=== PATIENT | female | born 1990 | race Caucasian/White ===

== ENCOUNTER 2016-09-29 09:30 | Emergency (ER) | payer OTHER ==
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
[2016-09-29 11:09] VITALS: BP 132/83; TEMP 98; O2SAT 95
== END 2016-09-29 11:04 | disposition home or self-care (01) ==
LOC: ER 09:30
DX: S50.812A Abrasion of left forearm, initial encounter (principal); J45.909 Unspecified asthma, uncomplicated; Z88.0 Allergy status to penicillin; Z79.899 Other long term (current) drug therapy; I49.02 Ventricular flutter; M25.441 Effusion, right hand; X99.8XXA Assault by other sharp object, initial encounter; Y92.89 Other specified places as the place of occurrence of the external cause

== ENCOUNTER → 2017-02-05 | Outpatient (CLI) | payer OTHER ==
--- NOTE | 2017-02-08 08:35 | RAD ---
EXAM DESCRIPTION: Cervical Spine,3 Views CLINICAL HISTORY: 26 yearsFemale, CERVICALGIA COMPARISON: None. IMPRESSION: Vertebral body stature and alignment are maintained. There is no evidence of acute fracture or destructive osseous lesion. Intervertebral disc heights are preserved. There are no significant degenerative changes. No prevertebral soft tissue swelling. Electronically signed by: Tima Phelps MD 02/08/2017 8:34 AM CDT
--- NOTE | 2017-02-08 08:44 | RAD ---
EXAM DESCRIPTION: Thoracic Spine,AP Lateral CLINICAL HISTORY: 26 years, Female, THORACIC SPINE PAIN COMPARISON: None. FINDINGS: 2 views are obtained. On the frontal projection thoracic spine only seen to the level of the top of T10. Follow-up should be obtained if concern for injury at T11 or T12. Disc spaces well-maintained. IMPRESSION: No definite abnormality. Study slightly limited as discussed Electronically signed by: Yunier Merchant MD 02/08/2017 8:44 AM CDT
== END | disposition home or self-care (01) ==
LOC: RAD 15:07
PROVIDERS: ATTEND Nurse Practitioner Family
DX: M54.2 Cervicalgia (principal); M54.6 Pain in thoracic spine

== ENCOUNTER 2017-04-17 19:54 | Emergency (ER) | payer OTHER ==
[2017-04-17] MEDS ORDERED: KETOROLAC TROMETHAMINE INJ 60 MG/2 ML VIAL IM ONE (20:06)
[2017-04-17 20:18] VITALS: TEMP 98.7
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
[2017-04-17 21:19] VITALS: BP 118/72; O2SAT 99
== END 2017-04-17 21:05 | disposition home or self-care (01) ==
LOC: ER 19:54
DX: F43.22 Adjustment disorder with anxiety (principal); Z63.0 Problems in relationship with spouse or partner; J45.909 Unspecified asthma, uncomplicated; Z88.0 Allergy status to penicillin; Z87.891 Personal history of nicotine dependence
CPT/HCPCS: 93005; J1885

== ENCOUNTER 2017-08-05 09:44 | Emergency (ER) | payer OTHER ==
[2017-08-05] MEDS ORDERED: predniSONE 20 MG TAB PO ONE (10:29)
[2017-08-05] MEDS ORDERED: IPRATROPIUM/ALBUTEROL 3 ML VIAL NEB ONE (10:29)
--- NOTE | 2017-08-05 10:47 | RAD ---
EXAM DESCRIPTION: Hand,Right 2 Views CLINICAL HISTORY: 27 years Female, 5th metacarpal pain COMPARISON: November 07, 2010 FINDINGS: 2 views of the right hand show subtle attenuation of the right fifth metacarpal neck without associated cortical lucency, probably related to an old healed fifth metacarpal fracture seen on a previous exam performed in October,. No acute fracture or malalignment is identified. No radiopaque foreign body or soft tissue gas. IMPRESSION: Old healed right fifth metacarpal neck fracture, but no acute right hand abnormality. Electronically signed by: Gordon Zarco MD 08/05/2017 10:46 AM [facility]
[2017-08-05] MEDS ORDERED: cefTRIAXone SODIUM 1 GM VIAL IM ONE (10:54)
[2017-08-05] MEDS ORDERED: AZITHROMYCIN 250 MG TAB PO ONE (10:54)
--- NOTE | 2017-08-05 10:56 | ED.PDOC ---
History of Present Illness - General Chief Complaint: Respiratory Problem Stated Complaint: congestion, dizziness Time Seen by Provider: 08/05/17 09:52 Source: patient Exam Limitations: no limitations - History of Present Illness Initial Comments: the patient is a 27-year-old female presenting to the emergency room secondary to 2 weeks of progressive symptoms. The patient has had a cough and some shortness of breath. She reports subjective fevers. She has had a mild sore throat and a runny nose. She has bilateral maxillary sinus pressure. Additionally she fell yesterday and hurt her right hand along the fifth metacarpal. There is no deformity. She is neurovascularly intact. There is a small bruise. She does smoke but has not smoked for a week or 2. She does have a history of asthma but takeno medications . Timing/Duration: constant, getting worse Severity: moderate Improving Factors: nothing Worsening Factors: nothing Associated Symptoms: cough, fever/chills, loss of appetite, malaise, nausea/ vomiting, shortness of breath Allergies/Adverse Reactions: Allergies Penicillins Allergy (Verified 08/05/17 10:15) Unknown Home Medications: Ambulatory Orders Mcmurray Carbonate [Mcm[place]ray Carbonate ER] 550 mg PO BID 12/24/15 Hydroxyzine HCl 50 mg PO QID PRN 09/29/16 Albuterol Inhaler [Ventolin Hfa Inhaler] 2 puff INH Q3H PRN #1 inh 08/05/17 Azithromycin 500 mg PO DAILY #7 tab 08/05/17 predniSONE [Prednisone] 20 mg PO DAILY #5 tab 08/05/17 Review of Systems - Review of Systems Constitutional: States: fever, malaise EENTM: States: nose congestion, throat pain Respiratory: States: cough, short of breath Cardiology: States: no symptoms reported Gastrointestinal/Abdominal: States: nausea Genitourinary: States: no symptoms reported Musculoskeletal: States: no symptoms reported Skin: States: no symptoms reported Neurological: States: anxiety Endocrine: States: no symptoms reported All other Systems: No Change from Baseline Past Medical History (General) - Patient Medical History Hx Seizures: No Hx Stroke: No Hx Dementia: No Hx Asthma: Yes Hx of COPD: No Hx Cardiac Disorders: Yes - flutter Hx Congestive Heart Failure: No Hx Pacemaker: No Hx Hypertension: No Hx Thyroid Disease: No Hx Diabetes: No Hx Gastroesophageal Reflux: No Hx Renal Disease: No Hx Cancer: No Hx of HIV: No Hx Hepatitis C: No Hx MRSA: No - Vaccination History Hx Tetanus, Diphtheria Vaccination: No Hx Influenza Vaccination: No Hx Pneumococcal Vaccination: No - Social History Hx Tobacco Use: Yes Hx Chewing Tobacco Use: No Hx Alcohol Use: Yes Hx Substance Use: No Hx Substance Use Treatment: No Hx Depression: Yes - not on medication denied suicidal Hx Physical Abuse: No Hx Emotional Abuse: No Hx Suspected Abuse: No - Female History Hx Last Menstrual Period: 02/23/15 Patient : No Family Medical History - Family History Father Family History: No Known Living Status: Still Living Hx Family Hypertension: Yes Physical Exam - Physical Exam General Appearance: Alert, Comfortable, No apparent distress Eye Exam: bilateral normal Ears, Nose, Throat: hearing grossly normal, pharyngeal erythema - ild, other - nares are red. 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 No fracture is seen on x -ray. the patient has an asthma exacerbation. She will be written for prednisone and albuterol. She needs to not smoke. the patient will be placed on 7 days of azithromycin for a possible sinus infection and for coverage of any possible atypical bacterial bronchitis. ER warnings were given. Follow-up with primary care doctor next week - Results/Orders Results/Orders: x-ray of the right hand shows no evidence of any fracture or dislocation Departure - Departure Clinical Impression: Asthma with exacerbation Qualifiers: Asthma severity: unspecified severity Qualified Code(s): J45.901 - Unspecified asthma with (acute) exacerbation Sinusitis, acute maxillary Qualifiers: Recurrence: recurrent Qualified Code(s): J01.01 - Acute recurrent maxillary sinusitis Contusion, hand Qualifiers: Encounter type: initial encounter Laterality: right Qualified Code(s): S60.221A - Contusion of right hand, initial encounter Disposition: Discharge to Home or Self Care Condition: Fair Departure Forms: ED Discharge - Pt. Copy, Patient Portal Self Enrollment Instructions: DI for Asthma -- Adult Diet: regular diet Activity: increase activity as tolerated Referrals: Zenaida Ann NP [Primary Care Provider] - 1-5 Days Prescriptions: Albuterol Inhaler [Ventolin Hfa Inhaler] 2 puff INH Q3H PRN #1 inh PRN Reason: Shortness Of Breath Azithromycin 500 mg PO DAILY #7 tab predniSONE [Prednisone] 20 mg PO DAILY #5 tab Home Medications: Ambulatory Orders Mcmurray Carbonate [Mcmurray Carbonate ER] 550 mg PO BID 12/24/15 Hydroxyzine HCl 50 mg PO QID PRN 09/29/16 Albuterol Inhaler [Ventolin Hfa Inhaler] 2 puff INH Q3H PRN #1 inh 08/05/17 Azithromycin 500 mg PO DAILY #7 tab 08/05/17 predniSONE [Prednisone] 20 mg PO DAILY #5 tab 08/05/17 Additional Instructions: the patient has a bruise to her right hand from a fall. No fracture is seen on x -ray. the patient has an asthma exacerbation. She will be written for prednisone and albuterol. She needs to not smoke. the patient will be placed on 7 days of azithromycin for a possible sinus infection and for coverage of any possible atypical bacterial bronchitis. ER warnings were given. Follow-up with primary care doctor next week
[2017-08-05] MEDS ORDERED: LIDOCAINE 1% 10 ML VIAL INJ ONE (11:07)
[2017-08-05 11:25] VITALS: BP 132/74; TEMP 97; O2SAT 96
== END 2017-08-05 11:26 | disposition home or self-care (01) ==
LOC: ER 09:44
DX: S60.221A Contusion of right hand, initial encounter (principal); J01.01 Acute recurrent maxillary sinusitis; J45.901 Unspecified asthma with (acute) exacerbation; F17.200 Nicotine dependence, unspecified, uncomplicated; I49.8 Other specified cardiac arrhythmias; W19.XXXA Unspecified fall, initial encounter; Y92.9 Unspecified place or not applicable
CPT/HCPCS: 73120; 94640; J0696; J7512; J7620; Q0144

== ENCOUNTER 2017-08-13 11:18 | Emergency (ER) | payer OTHER ==
[2017-08-13 11:33] VITALS: BP 121/75; TEMP 97.5; O2SAT 98
--- NOTE | 2017-08-13 11:40 | ED.PDOC ---
History of Present Illness - General Chief Complaint: Problem Stated Complaint: needs test Time Seen by Provider: 08/13/17 11:37 Source: patient Exam Limitations: no limitations - History of Present Illness Timing/Duration: 1 hour - JENNY HAS A TUBAL LIGATION BUT HAS MISED TWO CONSECUTIVE MENTRUAL PERIODS. SHE HAS NOTED MORNING SICKNESS AND BOUGHT A URINE TEST AT [facility]. IT WAS POSITIVE. SHE NOW IS HERE TO CONFIRM HER TEST. SHE DENIES ANY PELVIC PAIN OR VAGINAL BLEEDING. Allergies/Adverse Reactions: Allergies Penicillins Allergy (Verified 08/05/17 10:15) Unknown Home Medications: Ambulatory Orders [place] Carbonate [[place] Carbonate ER] 550 mg PO BID 12/24/15 Hydroxyzine HCl 50 mg PO QID PRN 09/29/16 Albuterol Inhaler [Ventolin Hfa Inhaler] 2 puff INH Q3H PRN #1 inh 08/05/17 Azithromycin 500 mg PO DAILY #7 tab 08/05/17 predniSONE [Prednisone] 20 mg PO DAILY #5 tab 08/05/17 Review of Systems - Review of Systems Constitutional: States: no symptoms reported EENTM: States: no symptoms reported Respiratory: States: no symptoms reported Cardiology: States: no symptoms reported Gastrointestinal/Abdominal: States: nausea, vomiting Genitourinary: States: no symptoms reported Musculoskeletal: States: no symptoms reported Skin: States: no symptoms reported Neurological: States: no symptoms reported Endocrine: States: no symptoms reported Hematologic/Lymphatic: States: no symptoms reported All other Systems: Reviewed and Negative, No Change from Baseline Past Medical History (General) - Patient Medical History Hx Seizures: No Hx Stroke: No Hx Dementia: No Hx Asthma: Yes Hx of COPD: No Hx Cardiac Disorders: Yes - flutter Hx Congestive Heart Failure: No Hx Pacemaker: No Hx Hypertension: No Hx Thyroid Disease: No Hx Diabetes: No Hx Gastroesophageal Reflux: No Hx Renal Disease: No Hx Cancer: No Hx of HIV: No Hx Hepatitis C: No Hx MRSA: No Other Surgeries:: BILATERAL TUBAL LIGATION - Vaccination History Hx Tetanus, Diphtheria Vaccination: No Hx Influenza Vaccination: No Hx Pneumococcal Vaccination: No - Social History Hx Tobacco Use: Yes Hx Chewing Tobacco Use: No Hx Alcohol Use: Yes Hx Substance Use: No Hx Substance Use Treatment: No Hx Depression: Yes - not on medication denied suicidal Hx Physical Abuse: No Hx Emotional Abuse: No Hx Suspected Abuse: No - Female History Patient is a Female of Child Bearing Age (10 -59 yrs old): Yes Hx Last Menstrual Period: 02/23/15 Patient : No Family Medical History - Family History Father Family History: No Known Living Status: Still Living Hx Family Hypertension: Yes Physical Exam - Physical Exam General Appearance: Alert, Anxious Eye Exam: bilateral normal Ears, Nose, Throat: normal ENT inspection Neck: non-tender, full range of motion, supple Respiratory: chest non-tender, lungs clear Cardiovascular/Chest: normal peripheral pulses, regular rate, rhythm, no edema, no gallop Peripheral Pulses: radial,right: 2+ Gastrointestinal/Abdominal: normal bowel sounds, non tender, soft, no organomegaly Rectal Exam: deferred Back Exam: normal inspection Extremity: normal range of motion Neurologic: alert Skin Exam: normal color, warm/dry Progress - Results/Orders Results/Orders: QUALITATIVE [facility]CG IS REPORTED NEGATIVE. Departure - Departure Clinical Impression: Amenorrhea, unspecified Time of Disposition: 12:37 Disposition: Discharge to Home or Self Care Condition: Good Departure Forms: ED Discharge - Pt. Copy, Patient Portal Self Enrollment Instructions: DI for Amenorrhea Diet: resume usual diet Activity: increase activity as tolerated Referrals: Tomeka Tinajero NP [Primary Care Provider] - 1-2 Weeks Home Medications: Ambulatory Orders [place] Carbonate [[place] Carbonate ER] 550 mg PO BID 12/24/15 Hydroxyzine HCl 50 mg PO QID PRN 09/29/16 Albuterol Inhaler [Ventolin Hfa Inhaler] 2 puff INH Q3H PRN #1 inh 08/05/17 Azithromycin 500 mg PO DAILY #7 tab 08/05/17 predniSONE [Prednisone] 20 mg PO DAILY #5 tab 08/05/17
== END 2017-08-13 12:40 | disposition home or self-care (01) ==
LOC: ER 11:18
DX: N91.2 Amenorrhea, unspecified (principal); J45.909 Unspecified asthma, uncomplicated; F32.9 Major depressive disorder, single episode, unspecified; F17.200 Nicotine dependence, unspecified, uncomplicated; Z32.02 Encounter for pregnancy test, result negative; Z98.51 Tubal ligation status; Z88.0 Allergy status to penicillin

== ENCOUNTER 2017-11-10 11:38 | Emergency (ER) | payer OTHER ==
[2017-11-10 12:09] VITALS: TEMP 98.3
--- NOTE | 2017-11-10 12:19 | ED.PDOC ---
History of Present Illness - General Chief Complaint: Lower Extremity Injury Stated Complaint: L knee injury, discomfort x 1 week Time Seen by Provider: 11/10/17 12:08 Source: patient Exam Limitations: no limitations - History of Present Illness Initial Comments: Gaby Griggs 27 y/o female stated that she was walking her dog last week and leash wrap around her forearm suddenly her dog wanted to run and was pulled down the ground landing on both her knees and brother noticed that her left kneecap looks dislocated and put it back.Had dull pain left knee since incident.Denies any other injuries. Occurred: last week Pain - Lower Extremity: moderate: Left Knee Method of Injury: fell Improving Factors: rest Worsening Factors: movement Associated Symptoms: pain Allergies/Adverse Reactions: Allergies Penicillins Allergy (Verified 11/10/17 11:55) Unknown Home Medications: Ambulatory Orders Bupropion HCl [Wellbutrin Sr] 150 mg PO DAILY 11/10/17 [place] Carbonate 300 mg PO DAILY 11/10/17 [place] Carbonate 600 mg PO BEDTIME 11/10/17 Sertraline HCl 50 mg PO DAILY 11/10/17 hydrOXYzine HCl [Atarax] 50 mg PO QID 11/10/17 Review of Systems - Review of Systems Constitutional: States: no symptoms reported EENTM: States: no symptoms reported Respiratory: States: no symptoms reported Cardiology: States: no symptoms reported Musculoskeletal: States: see HPI All other Systems: Reviewed and Negative, No Change from Baseline Past Medical History (General) - Patient Medical History Hx Seizures: No Hx Stroke: No Hx Dementia: No Hx Asthma: Yes Hx of COPD: No Hx Cardiac Disorders: Yes - flutter Hx Congestive Heart Failure: No Hx Pacemaker: No Hx Hypertension: No Hx Thyroid Disease: No Hx Diabetes: No Hx Gastroesophageal Reflux: No Hx Renal Disease: No Hx Cancer: No Hx of HIV: No Hx Hepatitis C: No Hx MRSA: No Surgical History: other - tubal ligation, - Vaccination History Hx Tetanus, Diphtheria Vaccination: No Hx Influenza Vaccination: No Hx Pneumococcal Vaccination: No - Social History Hx Tobacco Use: Yes Hx Chewing Tobacco Use: No Hx Alcohol Use: Yes Hx Substance Use: No Hx Substance Use Treatment: No Hx Depression: Yes - not on medication denied suicidal Hx Physical Abuse: No Hx Emotional Abuse: No Hx Suspected Abuse: No - Female History Patient is a Female of Child Bearing Age (10 -59 yrs old): Yes Hx Last Menstrual Period: 02/23/15 Patient : No Family Medical History - Family History Father Family History: No Known Living Status: Still Living Hx Family Hypertension: Yes Hx Family Diabetes: Yes - dad Hx Family Cancer: Yes - cervical-mom,breast-grandma Physical Exam - Physical Exam General Appearance: Alert, Comfortable, No apparent distress Eyes, Ears, Nose, Throat: normal ENT inspection Neck: full range of motion, supple Cardiovascular/Respiratory: regular rate, rhythm, no M/R/G, normal peripheral pulses Gastrointestinal/Abdominal: non-tender, no organomegaly Back: no CVA tenderness, no vertebral tenderness Thigh/Hip: non-tender, no evidence of injury Leg: non-tender, no evidence of injury Ankle: bone tenderness - kneecap left, ecchymosis - left knee, limited ROM - left knee pain flexion,no instability noted, soft tissue tenderness - left knee Foot: no evidence of injury Neuro/Tendon: normal sensation, no evidence tendon injury Mental Status: alert, oriented x 3 Progress - Progress Progress: 11/10/17 12:23 Vital Signs - 24 hr 11/10/17 11:56 Temperature 98.3 F Pulse Rate [ 77 Left Radial] Respiratory 20 Rate Blood Pressure 119/71 [Left Arm] O2 Sat by Pulse 97 Oximetry - EKG/XRAY/CT XRAY: knee - left no fracture dislocation Departure - Departure Clinical Impression: Knee pain, left anterior Contusion of knee, left Qualifiers: Encounter type: initial encounter Qualified Code(s): S80.02XA - Contusion of left knee, initial encounter Time of Disposition: 12:57 Disposition: Discharge to Home or Self Care Departure Forms: ED Discharge - Pt. Copy, Patient Portal Self Enrollment Instructions: DI for Knee Pain, DI for Contusion Home Medications: Ambulatory Orders Bupropion HCl [Wellbutrin Sr] 150 mg PO DAILY 11/10/17 [place] Carbonate 300 mg PO DAILY 11/10/17 [place] Carbonate 600 mg PO BEDTIME 11/10/17 Sertraline HCl 50 mg PO DAILY 11/10/17 hydrOXYzine HCl [Atarax] 50 mg PO QID 11/10/17 Additional Instructions: Follow up with primary Md for referral to orthopedist if knee pain not getting better in 2 weeks;May use Aspercreme apply 3 x a day for 2 weeks
--- NOTE | 2017-11-10 12:40 | RAD ---
EXAM DESCRIPTION: Knee,Left 2 Views CLINICAL HISTORY: 27 years, Female, injury, swelling COMPARISON: None TECHNIQUE: 2 views of the left knee FINDINGS: No fracture or dislocation. Bones appear normally mineralized with normal trabecular pattern. Normal appearance of medial and lateral compartments on frontal view. Lateral view shows normal position of the patella. No patellar spurring or enthesopathy. No suprapatellar knee joint effusion. Normal contour of quadriceps and patellar tendons. IMPRESSION: Negative for fracture or dislocation. Electronically signed by: Michael Byrne MD 11/10/2017 12:38 PM CDT
[2017-11-10 13:10] VITALS: BP 110/68; O2SAT 99
== END 2017-11-10 13:10 | disposition home or self-care (01) ==
LOC: ER 11:38
DX: S80.02XA Contusion of left knee, initial encounter (principal); I49.8 Other specified cardiac arrhythmias; Z79.899 Other long term (current) drug therapy; Z87.891 Personal history of nicotine dependence; W19.XXXA Unspecified fall, initial encounter; Y93.K1 Activity, walking an animal; Y92.9 Unspecified place or not applicable

== ENCOUNTER 2018-02-12 15:19 | Emergency (ER) | payer OTHER ==
[2018-02-12] MEDS ORDERED: TETANUS,DIPHTHERIA,PERTUSSIS 1 EA SYG IM ONE (15:45)
[2018-02-12] MEDS ORDERED: DOXYCYCLINE HYCLATE CAP 100 MG CAP PO ONE (16:33)
[2018-02-12 16:37] VITALS: BP 100/65; TEMP 98.9; O2SAT 95
--- NOTE | 2018-02-12 16:37 | ED.PDOC ---
History of Present Illness - General Chief Complaint: Bite: Animal/Insect/Human Stated Complaint: cat bite to RH Time Seen by Provider: 02/12/18 15:43 Source: patient, Vital Signs reviewed Exam Limitations: no limitations - History of Present Illness Initial Comments: Bitten by her cat on Wednesday. Pain & redness today. Timing/Duration: getting worse Severity: mild Improving Factors: nothing Worsening Factors: nothing Associated Symptoms: denies symptoms Allergies/Adverse Reactions: Allergies Penicillins Allergy (Verified 11/10/17 11:55) Unknown Home Medications: Ambulatory Orders Bupropion HCl [Wellbutrin Sr] 150 mg PO DAILY 11/10/17 [place] Carbonate 300 mg PO DAILY 11/10/17 [place] Carbonate 600 mg PO BEDTIME 11/10/17 Sertraline HCl 50 mg PO DAILY 11/10/17 hydrOXYzine HCl [Atarax] 50 mg PO QID 11/10/17 Doxycycline Hyclate 100 mg PO BID 10 Days #20 tab 02/12/18 Review of Systems - Review of Systems Constitutional: States: no symptoms reported. Denies: fever Gastrointestinal/Abdominal: Denies: nausea, vomiting Musculoskeletal: States: see HPI. Denies: joint pain, joint swelling Skin: States: see HPI, change in color Neurological: States: no symptoms reported Past Medical History (General) - Patient Medical History Hx Seizures: No Hx Stroke: No Hx Dementia: No Hx Asthma: Yes Hx of COPD: No Hx Cardiac Disorders: Yes - flutter Hx Congestive Heart Failure: No Hx Pacemaker: No Hx Hypertension: No Hx Thyroid Disease: No Hx Diabetes: No Hx Gastroesophageal Reflux: No Hx Renal Disease: No Hx Cancer: No Hx of HIV: No Hx Hepatitis C: No Hx MRSA: No - Vaccination History Hx Tetanus, Diphtheria Vaccination: No Hx Influenza Vaccination: No Hx Pneumococcal Vaccination: No - Social History Hx Tobacco Use: Yes Hx Chewing Tobacco Use: No Hx Alcohol Use: Yes Hx Substance Use: No Hx Substance Use Treatment: No Hx Depression: Yes - not on medication denied suicidal Hx Physical Abuse: No Hx Emotional Abuse: No Hx Suspected Abuse: No - Female History Hx Last Menstrual Period: 02/23/15 Patient : No Family Medical History - Family History Father Family History: No Known Living Status: Still Living Hx Family Hypertension: Yes Hx Family Diabetes: Yes - dad Hx Family Cancer: Yes - cervical-mom,breast-grandma Physical Exam - Physical Exam General Appearance: Alert, Comfortable, No apparent distress Respiratory: no respiratory distress Extremity: normal range of motion, normal capillary refill, inflammation, other - 2 puncture sites, one is near the first MCP joint but no effusion present Neurologic: no motor/sensory deficits, alert, normal mood/affect, oriented x 3 Skin Exam: warm/dry Departure - Departure Clinical Impression: Bite wound Cellulitis Qualifiers: Site of cellulitis: extremity Site of cellulitis of extremity: upper extremity Laterality: right Qualified Code(s): L03.113 - Cellulitis of right upper limb Time of Disposition: 16:34 Disposition: Discharge to Home or Self Care Condition: Good Departure Forms: ED Discharge - Pt. Copy, Patient Portal Self Enrollment Instructions: DI for Animal Bites Prescriptions: Doxycycline Hyclate 100 mg PO BID 10 Days #20 tab Home Medications: Ambulatory Orders Bupropion HCl [Wellbutrin Sr] 150 mg PO DAILY 11/10/17 [place] Carbonate 300 mg PO DAILY 11/10/17 [place] Carbonate 600 mg PO BEDTIME 11/10/17 Sertraline HCl 50 mg PO DAILY 11/10/17 hydrOXYzine HCl [Atarax] 50 mg PO QID 11/10/17 Doxycycline Hyclate 100 mg PO BID 10 Days #20 tab 02/12/18 Additional Instructions: follow up here in 3 days if not improving
== END 2018-02-12 17:10 | disposition home or self-care (01) ==
LOC: ER 15:19
DX: L03.113 Cellulitis of right upper limb (principal); J45.909 Unspecified asthma, uncomplicated; Z23 Encounter for immunization; Z87.891 Personal history of nicotine dependence; Z79.899 Other long term (current) drug therapy; Z88.0 Allergy status to penicillin

== ENCOUNTER 2018-09-05 07:06 | Emergency (ER) | payer OTHER ==
[2018-09-05 07:28] VITALS: TEMP 98.3
[2018-09-05] MEDS ORDERED: PROMETHAZINE HCL INJ 12.5 MG in SODIUM CHLORIDE 0.9% 50ML 50 ML IVPB ONE (07:39)
[2018-09-05] MEDS ORDERED: MORPHINE SULFATE INJ 10 MG/ML VIAL IV ONE (07:40)
--- NOTE | 2018-09-05 07:43 | ED.PDOC ---
History of Present Illness - General Chief Complaint: Respiratory Problem Stated Complaint: cough Time Seen by Provider: 09/05/18 07:31 Source: patient Exam Limitations: no limitations - History of Present Illness Initial Comments: Sinus congestion with chest congestion, cough, SOB, and N/V for 1-2 days Timing/Duration: 24 hours Severity: moderate Improving Factors: nothing Worsening Factors: nothing Associated Symptoms: cough, diaphoresis, fever/chills, malaise, nausea/vomiting, shortness of breath, weakness Allergies/Adverse Reactions: Allergies Penicillins Allergy (Verified 11/10/17 11:55) Unknown Home Medications: Ambulatory Orders Benzonatate Perles [Tessalon Perles] 100 mg PO TID PRN #20 cap 09/05/18 Dextromethorphan-Guaifenesin [Mucinex Dm Maximum Streng 60-1200 mg] 1 tab PO BID PRN #20 tab 09/05/18 Hydroxyzine Pamoate [Vistaril] 50 mg PO DAILY PRN 09/05/18 RX: Albuterol Inhaler [Ventolin Hfa Inhaler] 2 puff INH Q6HR PRN #1 inh 09/05/18 Review of Systems - Review of Systems Constitutional: States: chills, diaphoresis, fever, malaise EENTM: States: nose congestion. Denies: throat pain Respiratory: States: cough, short of breath, wheezing Cardiology: Denies: chest pain Gastrointestinal/Abdominal: States: nausea, vomiting. Denies: abdominal pain, diarrhea Genitourinary: States: no symptoms reported Musculoskeletal: States: muscle pain Skin: States: no symptoms reported Neurological: States: no symptoms reported Endocrine: States: no symptoms reported Hematologic/Lymphatic: States: no symptoms reported Past Medical History (General) - Patient Medical History Hx Seizures: No Hx Stroke: No Hx Dementia: No Hx Asthma: Yes Hx of COPD: No Hx Cardiac Disorders: Yes - flutter Hx Congestive Heart Failure: No Hx Pacemaker: No Hx Hypertension: No Hx Thyroid Disease: No Hx Diabetes: No Hx Gastroesophageal Reflux: No Hx Renal Disease: No Hx Cancer: No Hx of HIV: No Hx Hepatitis C: No Hx MRSA: No Surgical History: other - Vaccination History Hx Tetanus, Diphtheria Vaccination: No Hx Influenza Vaccination: No Hx Pneumococcal Vaccination: No - Social History Hx Tobacco Use: Yes Hx Chewing Tobacco Use: No Hx Alcohol Use: Yes Hx Substance Use: No Hx Substance Use Treatment: No Hx Depression: Yes - not on medication denied suicidal Hx Physical Abuse: No Hx Emotional Abuse: No Hx Suspected Abuse: No - Female History Patient is a Female of Child Bearing Age (10 -59 yrs old): Yes Hx Last Menstrual Period: 02/23/15 Patient : No Family Medical History - Family History Father Family History: No Known Living Status: Still Living Hx Family Hypertension: Yes Hx Family Diabetes: Yes - dad Hx Family Cancer: Yes - cervical-mom,breast-grandma Physical Exam - Physical Exam General Appearance: Alert, Obvious distress Eye Exam: bilateral normal Ears, Nose, Throat: hearing grossly normal, normal pharynx Neck: non-tender, full range of motion, supple Respiratory: lungs clear Cardiovascular/Chest: normal peripheral pulses, regular rate, rhythm Gastrointestinal/Abdominal: normal bowel sounds, non tender, soft Extremity: normal inspection Neurologic: alert, normal mood/affect, oriented x 3 Skin Exam: normal color, warm/dry Departure - Departure Clinical Impression: Bronchitis Upper respiratory infection Qualifiers: URI type: unspecified viral URI Qualified Code(s): J06.9 - Acute upper respiratory infection, unspecified Disposition: Discharge to Home or Self Care Condition: Fair Departure Forms: ED Discharge - Pt. Copy, Patient Portal Self Enrollment Prescriptions: RX: Albuterol Inhaler [Ventolin Hfa Inhaler] 2 puff INH Q6HR PRN #1 inh PRN Reason: Wheezing Benzonatate Perles [Tessalon Perles] 100 mg PO TID PRN #20 cap PRN Reason: Cough Dextromethorphan-Guaifenesin [Mucinex Dm Maximum Streng 60-1200 mg] 1 tab PO BID PRN #20 tab PRN Reason: Cough & Congestion Home Medications: Ambulatory Orders Benzonatate Perles [Tessalon Perles] 100 mg PO TID PRN #20 cap 09/05/18 Dextromethorphan-Guaifenesin [Mucinex Dm Maximum Streng 60-1200 mg] 1 tab PO BID PRN #20 tab 09/05/18 Hydroxyzine Pamoate [Vistaril] 50 mg PO DAILY PRN 09/05/18 RX: Albuterol Inhaler [Ventolin Hfa Inhaler] 2 puff INH Q6HR PRN #1 inh 09/05/18
--- NOTE | 2018-09-05 08:24 | RAD ---
EXAM DESCRIPTION: Chest,1 View CLINICAL HISTORY: chest pain COMPARISON: May 25, 2016 FINDINGS: The cardiomediastinal silhouette is unremarkable. There is no airspace consolidation or pleural effusion. The bronchovascular markings are within normal limits, and the lungs are not hyperinflated. There is no pneumothorax or acute fracture. IMPRESSION: Negative exam. Electronically signed by: Gordon Zarco MD 09/05/2018 8:[address] [facility]
[2018-09-05 08:47] VITALS: BP 109/77; O2SAT 97
== END 2018-09-05 09:03 | disposition home or self-care (01) ==
LOC: ER 07:06
DX: J06.9 Acute upper respiratory infection, unspecified (principal); J45.909 Unspecified asthma, uncomplicated; R11.2 Nausea with vomiting, unspecified; F32.9 Major depressive disorder, single episode, unspecified; Z87.891 Personal history of nicotine dependence; Z88.0 Allergy status to penicillin; Z79.899 Other long term (current) drug therapy

== ENCOUNTER 2018-10-01 03:32 | Emergency (ER) | payer OTHER ==
--- NOTE | 2018-10-01 04:08 | ED.PDOC ---
History of Present Illness - General Chief Complaint: Abdominal Pain Stated Complaint: lower abd pain Time Seen by Provider: 10/01/18 04:05 Source: patient, Vital Signs reviewed Additional Information: 28 YEAR OLD PRESENTS WITH LOWER ABDOMINAL PAIN ASSOCIATED WITH DIARRHEA NAUSEA PASSED SOME BLOOD IN THE STOOLS SHE HAS NO FEVER CHILLS NO RECENT ANTIBIOTICS PHYSICAL EXAM ORAL MUCOUS MEMBRANE DRY POOR DENTITION LUNGS CLEAR HEART SOUNDS NORMAL ABD SOFT NO GAURDING NO RIGIDITY NO REBOUND - History of Present Illness Timing/Duration: 4-6 hours Severity: moderate Improving Factors: nothing Worsening Factors: nothing Associated Symptoms: loss of appetite, nausea/vomiting, weakness Allergies/Adverse Reactions: Allergies Penicillins Allergy (Verified 11/10/17 11:55) Unknown Home Medications: Ambulatory Orders Albuterol Inhaler [Ventolin Hfa Inhaler] 2 puff INH Q6HR PRN #1 inh 09/05/18 Benzonatate Perles [Tessalon Perles] 100 mg PO TID PRN #20 cap 09/05/18 Dextromethorphan-Guaifenesin [Mucinex Dm Maximum Streng 60-1200 mg] 1 tab PO BID PRN #20 tab 09/05/18 Hydroxyzine Pamoate [Vistaril] 50 mg PO DAILY PRN 09/05/18 Ciprofloxacin [Cipro] 500 mg PO BID #20 tab 10/01/18 Promethazine Tab [Phenergan Tablet] 25 mg PO .Q4H #20 tab 10/01/18 metroNIDAZOLE [Flagyl] 500 mg PO Q8H #30 tab 10/01/18 Review of Systems - Review of Systems Constitutional: States: no symptoms reported EENTM: States: no symptoms reported Respiratory: States: no symptoms reported Cardiology: States: no symptoms reported Gastrointestinal/Abdominal: States: see HPI Genitourinary: States: no symptoms reported Musculoskeletal: States: no symptoms reported Skin: States: no symptoms reported Neurological: States: no symptoms reported Endocrine: States: no symptoms reported Hematologic/Lymphatic: States: no symptoms reported Past Medical History (General) - Patient Medical History Hx Seizures: No Hx Stroke: No Hx Dementia: No Hx Asthma: Yes Hx of COPD: No Hx Cardiac Disorders: Yes - flutter Hx Congestive Heart Failure: No Hx Pacemaker: No Hx Hypertension: No Hx Thyroid Disease: No Hx Diabetes: No Hx Gastroesophageal Reflux: No Hx Renal Disease: No Hx Cancer: No Hx of HIV: No Hx Hepatitis C: No Hx MRSA: No Surgical History: other - Vaccination History Hx Tetanus, Diphtheria Vaccination: No Hx Influenza Vaccination: No Hx Pneumococcal Vaccination: No - Social History Hx Tobacco Use: Yes Hx Chewing Tobacco Use: No Hx Alcohol Use: Yes Hx Substance Use: No Hx Substance Use Treatment: No Hx Depression: Yes - not on medication denied suicidal Feels Threatened In Home Enviroment: No Feels Threatened In a Relationship: No Hx Physical Abuse: No Hx Emotional Abuse: No Hx Suspected Abuse: No - Activities of Daily Living Hospice Agency (if applicable):: None - Female History Patient is a Female of Child Bearing Age (10 -59 yrs old): No - tubal ligation Hx Last Menstrual Period: 02/23/15 Patient : No Family Medical History - Family History Father Family History: No Known Living Status: Still Living Hx Family Hypertension: Yes Hx Family Diabetes: Yes - dad Hx Family Cancer: Yes - cervical-mom,breast-grandma Physical Exam - Physical Exam General Appearance: Alert, Comfortable Eye Exam: bilateral normal, bilateral abnormal EOM Ears, Nose, Throat: hearing grossly normal, normal ENT inspection, normal pharynx Neck: non-tender, full range of motion, supple Respiratory: chest non-tender, lungs clear, normal breath sounds, no respiratory distress, no accessory muscle use Cardiovascular/Chest: normal peripheral pulses, regular rate, rhythm, no edema, no gallop, no JVD Gastrointestinal/Abdominal: normal bowel sounds, non tender, soft, no organomegaly Extremity: normal range of motion, non-tender, normal inspection Neurologic: pearl peller II-XII nml as tested, no motor/sensory deficits, alert, normal mood/affect, oriented x 3 Skin Exam: normal color, warm/dry Lymphatic: no adenopathy Progress - Results/Orders Results/Orders: Laboratory Tests 10/01/18 10/01/18 10/01/18 03:54 04:10 04:10 WBC 10.9 H RBC 5.17 Hgb 15.6 Hct 46.9 MCV 90.6 MCH 30.2 MCHC 33.3 RDW 14.0 Plt Count 172 MPV 9.1 Absolute Neuts (auto) 7.20 H Absolute Lymphs (auto) 2.70 Absolute Monos (auto) 0.70 Absolute Eos (auto) 0.10 Absolute Basos (auto) 0.10 Neutrophils % 66.4 Lymphocytes % 24.6 Monocytes % 6.9 Eosinophils % 1.1 Basophils % 1.0 PT 10.2 INR 1.02 Sodium Potassium Chloride Carbon Dioxide Anion Gap BUN Creatinine BUN/Creatinine Ratio Random Glucose Serum Osmolality Calcium Total Bilirubin AST ALT Alkaline Phosphatase Serum Total Protein Albumin Globulin Albumin/Globulin Ratio Urine Color Yellow Urine Appearance Sl cloudy Urine pH 5.5 Ur Specific [place] >= 1.030 Urine Protein Negative Urine Glucose (UA) Negative Urine Ketones Negative Urine Blood Trace-intact H Urine Nitrite Negative Urine Bilirubin Negative Urine Urobilinogen 0.2 Ur Leukocyte Esterase Trace H Urine RBC 1-3 Urine WBC 40-50 H Ur Epithelial Cells 20-30 Urine Bacteria 3+ H Urine Mucus Small 10/01/18 04:10 WBC RBC Hgb Hct MCV MCH MCHC RDW Plt Count MPV Absolute Neuts (auto) Absolute Lymphs (auto) Absolute Monos (auto) Absolute Eos (auto) Absolute Basos (auto) Neutrophils % Lymphocytes % Monocytes % Eosinophils % Basophils % PT INR Sodium 136 Potassium 3.6 Chloride 105 Carbon Dioxide 21 Anion Gap 13.6 BUN 12 Creatinine 0.61 BUN/Creatinine Ratio 19.7 Random Glucose 96 Serum Osmolality 271.6 L Calcium 9.5 Total Bilirubin 1.1 H AST 18 ALT 17 Alkaline Phosphatase 79 Serum Total Protein 8.1 Albumin 4.6 Globulin 3.5 Albumin/Globulin Ratio 1.3 Urine Color Urine Appearance Urine pH Ur Specific [place] Urine Protein Urine Glucose (UA) Urine Ketones Urine Blood Urine Nitrite Urine Bilirubin Urine Urobilinogen Ur Leukocyte Esterase Urine RBC Urine WBC Ur Epithelial Cells Urine Bacteria Urine Mucus Departure - Departure Clinical Impression: Urinary tract infection, Gastroenteritis Time of Disposition: 05:55 Disposition: Discharge to Home or Self Care Condition: Good Departure Forms: ED Discharge - Pt. Copy, Patient Portal Self Enrollment Instructions: DI for Abdominal Pain-Adult Prescriptions: Ciprofloxacin [Cipro] 500 mg PO BID #20 tab metroNIDAZOLE [Flagyl] 500 mg PO Q8H #30 tab Promethazine Tab [Phenergan Tablet] 25 mg PO .Q4H #20 tab Home Medications: Ambulatory Orders Albuterol Inhaler [Ventolin Hfa Inhaler] 2 puff INH Q6HR PRN #1 inh 09/05/18 Benzonatate Perles [Tessalon Perles] 100 mg PO TID PRN #20 cap 09/05/18 Dextromethorphan-Guaifenesin [Mucinex Dm Maximum Streng 60-1200 mg] 1 tab PO BID PRN #20 tab 09/05/18 Hydroxyzine Pamoate [Vistaril] 50 mg PO DAILY PRN 09/05/18 Ciprofloxacin [Cipro] 500 mg PO BID #20 tab 10/01/18 Promethazine Tab [Phenergan Tablet] 25 mg PO .Q4H #20 tab 10/01/18 metroNIDAZOLE [Flagyl] 500 mg PO Q8H #30 tab 10/01/18
[2018-10-01] MEDS ORDERED: SODIUM CHLORIDE 0.9% 1000ML 1,000 ML IVS ONE (04:12)
[2018-10-01] MEDS ORDERED: ONDANSETRON INJ 4 MG/2 ML VIAL IV ONE (04:12)
[2018-10-01] MEDS ORDERED: HYOSCYAMINE SULFATE 0.5 MG/ML VIAL IV ONE (04:13)
[2018-10-01 05:38] VITALS: TEMP 98; O2SAT 98
[2018-10-01] MEDS ORDERED: ONDANSETRON INJ 4 MG/2 ML VIAL ONE (06:43)
[2018-10-01 07:15] VITALS: BP 114/58
== END 2018-10-01 06:30 | disposition home or self-care (01) ==
LOC: ER 03:32
DX: N39.0 Urinary tract infection, site not specified (principal); K52.9 Noninfective gastroenteritis and colitis, unspecified; F32.9 Major depressive disorder, single episode, unspecified; J45.909 Unspecified asthma, uncomplicated; Z87.891 Personal history of nicotine dependence; Z79.899 Other long term (current) drug therapy; Z88.0 Allergy status to penicillin
CPT/HCPCS: 80053; 81001; 85025; 85610; 87077; 87086; 87186; J2405; J7030

== ENCOUNTER → 2019-06-23 | Outpatient (CLI) | payer MEDICARE, OTHER | LOC: YCFC.O 07:12 | PROVIDERS: ATTEND Nurse Practitioner | DX: Z00.00 Encounter for general adult medical examination without abnormal findings (principal); Z13.220 Encounter for screening for lipoid disorders ==

== ENCOUNTER 2019-10-14 09:42 | Emergency (ER) | payer MEDICARE, OTHER ==
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
[2019-10-14 10:05] VITALS: BP 129/73; TEMP 99; O2SAT 98
--- NOTE | 2019-10-14 10:29 | RAD ---
EXAM DESCRIPTION: Hand,Right 2 Views CLINICAL HISTORY: Poss fracture, pain. COMPARISON: 04/14/2018. TECHNIQUE: Two views right hand. FINDINGS: No acute displaced fracture or dislocation. The osseous alignment is normal. There is no radiopaque foreign body. The soft tissues are unremarkable. IMPRESSION: 1. No acute osseous abnormality. Electronically signed by: Madan Mendoza DO 10/14/2019 10:27 AM [facility]
== END 2019-10-14 10:37 | disposition home or self-care (01) ==
LOC: ER 09:42
DX: S60.221A Contusion of right hand, initial encounter (principal); S63.91XA Sprain of unspecified part of right wrist and hand, initial encounter; J45.909 Unspecified asthma, uncomplicated; W22.09XA Striking against other stationary object, initial encounter; Z87.891 Personal history of nicotine dependence; Z79.899 Other long term (current) drug therapy; Z88.0 Allergy status to penicillin; Y92.9 Unspecified place or not applicable

== ENCOUNTER 2020-08-02 13:07 | Emergency (ER) | payer MEDICARE, MEDICAID ==
--- NOTE | 2020-08-02 13:57 | RAD ---
EXAM: Chest,1 View CLINICAL HISTORY: cough anbd sob. COMPARISON STUDY: September 05, 2018 TECHNICAL: A single anteroposterior (AP) view of the chest was performed. FINDINGS: No consolidations, effusions, or edema. The heart size is not enlarged. AP portable technique causes magnification with some enlargement of the cardiac silhouette. IMPRESSION: NO ACUTE ABNORMALITY. PA AND LATERAL CHEST X-RAYS ARE RECOMMENDED WHEN POSSIBLE. Electronically signed by: Douglas Brooks MD 08/02/2020 1:55 PM [facility]
--- NOTE | 2020-08-02 14:42 | ED.PDOC ---
History of Present Illness - General Chief Complaint: Respiratory Problem Stated Complaint: SOB, cough, CP, BLANCO, runny nose, dizzy, Time Seen by Provider: 08/02/20 13:24 Source: patient, RN notes reviewed, Vital Signs reviewed Exam Limitations: no limitations - History of Present Illness Initial Comments: Patient is a 30-year-old white female who presents with complaints of 1 month of cough and 3 to 4 days of worsening cough with productive sputum that is yellow- brown. Additionally she has had subjective fevers and shortness of breath. Nothing makes the cough better or worse. Shortness of breath is worsened by exertion. Patient denies any headaches, blurry vision, dizziness, chest pain, nausea, vomiting, diarrhea. Patient smokes 1/2 pack cigarettes a day, down from 2 packs a day last month. Timing/Duration: other - 3-4 days Severity: moderate Improving Factors: nothing Worsening Factors: other - exertion Associated Symptoms: cough, fever/chills - subjective, shortness of breath Allergies/Adverse Reactions: Allergies Penicillins Allergy (Verified 08/02/20 14:01) Unknown Home Medications: Ambulatory Orders Albuterol Inhaler [Ventolin Hfa Inhaler] 2 puff INH Q6HR PRN #1 inh 09/05/18 Hydroxyzine Pamoate [Vistaril] 50 mg PO DAILY PRN 09/05/18 Ibuprofen [Motrin] 400 mg PO Q8H #20 tab 10/14/19 Albuterol Sulfate [Proair Hfa] 108 mcg INH Q4H #1 ml 08/02/20 predniSONE 60 mg PO DAILY #15 tab 08/02/20 Review of Systems - Review of Systems Constitutional: States: see HPI, chills, fever. Denies: malaise, weakness EENTM: States: no symptoms reported. Denies: eye pain, blurred vision, double vision Respiratory: States: see HPI, cough, short of breath. Denies: stridor, wheezing Cardiology: States: no symptoms reported. Denies: chest pain, palpitations, syncope Gastrointestinal/Abdominal: States: no symptoms reported. Denies: abdominal pain, diarrhea, nausea, vomiting Genitourinary: States: no symptoms reported. Denies: dysuria, frequency Musculoskeletal: States: no symptoms reported. Denies: back pain, joint pain, neck pain Skin: States: no symptoms reported. Denies: change in color, rash Neurological: States: no symptoms reported. Denies: tingling, tremors, weakness Endocrine: States: no symptoms reported. Denies: increased hunger, increased thirst, increased urine Hematologic/Lymphatic: States: no symptoms reported. Denies: blood clots, easy bleeding All other Systems: Reviewed and Negative Past Medical History (General) - Patient Medical History Hx Seizures: No Hx Stroke: Yes Hx Dementia: No Hx Asthma: Yes Hx of COPD: No Hx Cardiac Disorders: No Hx Congestive Heart Failure: No Hx Pacemaker: No Hx Hypertension: No Hx Thyroid Disease: No Hx Diabetes: No Hx Gastroesophageal Reflux: No Hx Renal Disease: No Hx Cancer: No Hx of HIV: No Hx Hepatitis C: No Hx MRSA: No Surgical History: other - Vaccination History Hx Tetanus, Diphtheria Vaccination: No Hx Influenza Vaccination: Yes Hx Pneumococcal Vaccination: No - Social History Hx Tobacco Use: Yes Hx Chewing Tobacco Use: No Hx Alcohol Use: Yes Hx Substance Use: No Hx Substance Use Treatment: No Hx Depression: No Hx Physical Abuse: No Hx Emotional Abuse: No Hx Suspected Abuse: No - Female History Patient is a Female of Child Bearing Age (10 -59 yrs old): Yes Hx Last Menstrual Period: 02/23/15 Patient : No - Denies Family Medical History - Family History Father Family History: No Known Living Status: Still Living Hx Family Hypertension: Yes Hx Family Diabetes: Yes - dad Hx Family Cancer: Yes - cervical-mom,breast-grandma Physical Exam - Physical Exam General Appearance: Alert, Anxious, Well Developed, Well Groomed, Well Hydrated, Well Nourished Eye Exam: bilateral normal Ears, Nose, Throat: hearing grossly normal, normal pharynx Neck: non-tender, full range of motion, supple, normal inspection Respiratory: chest non-tender, lungs clear, normal breath sounds, no respiratory distress, no accessory muscle use Cardiovascular/Chest: normal peripheral pulses, regular rate, rhythm, no edema, no gallop, no JVD, no murmur Peripheral Pulses: radial,right: 2+, radial,left: 2+ Gastrointestinal/Abdominal: normal bowel sounds, non tender, soft Rectal Exam: normal exam, normal rectal tone Back Exam: normal inspection, no CVA tenderness, no vertebral tenderness Extremity: normal range of motion, non-tender, normal inspection 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 08/02/20 15:21 Patient is markedly improved after nebs. Chest x-ray does not show any pneumonia. Plan on discharging patient home with an MDI and a spacer along with a prescription for steroids. I discussed this plan of care with the patient she voices understanding and agreement. Rajiv Alvarez M.D. #[id number] - Results/Orders Results/Orders: EXAM: Chest,1 View CLINICAL HISTORY: cough anbd sob. COMPARISON STUDY: September 05, 2018 TECHNICAL: A single anteroposterior (AP) view of the chest was performed. FINDINGS: No consolidations, effusions, or edema. The heart size is not enlarged. AP portable technique causes magnification with some enlargement of the cardiac silhouette. IMPRESSION: NO ACUTE ABNORMALITY. PA AND LATERAL CHEST X-RAYS ARE RECOMMENDED WHEN POSSIBLE. Electronically signed by: Douglas Brooks MD 08/02/2020 1:55 PM EKG performed 02 August 2020 at 1328 hrs.: Normal sinus rhythm with sinus arrhythmia at 92 bpm, normal axis deviation, no ST or T wave elevation or depression concerning for ischemia, normal EKG. No comparison EKG available at this time. 08/02/20 13:30 EKG .ONCE Laboratory Results - last 24 hr 08/02/20 14:05 Urine HCG, Qual Negative COVID-19 is negative Vital Signs 08/02/20 08/02/20 08/02/20 13:42 13:43 15:00 Temperature 98 F Pulse Rate 92 H Pulse Rate [ 92 H 92 H Pulse ox] Respiratory 20 20 18 Rate Blood Pressure 125/75 [L arm] O2 Sat by Pulse 96 98 Oximetry Departure - Departure Clinical Impression: Viral upper respiratory tract infection with cough, COPD exacerbation Time of Disposition: 15:24 Disposition: Discharge to Home or Self Care Condition: Good Departure Forms: ED Discharge - Pt. Copy, Patient Portal Self Enrollment Instructions: Viral Upper Respiratory Infection, Adult (DC), Exacerbation of COPD (DC) Diet: resume usual diet Activity: increase activity as tolerated Referrals: Vera Roche FNP [Primary Care Provider] - 1-5 Days Prescriptions: predniSONE 60 mg PO DAILY #15 tab Albuterol Sulfate [Proair Hfa] 108 mcg INH Q4H #1 ml Home Medications: Ambulatory Orders Albuterol Inhaler [Ventolin Hfa Inhaler] 2 puff INH Q6HR PRN #1 inh 09/05/18 Hydroxyzine Pamoate [Vistaril] 50 mg PO DAILY PRN 09/05/18 Ibuprofen [Motrin] 400 mg PO Q8H #20 tab 10/14/19 Albuterol Sulfate [Proair Hfa] 108 mcg INH Q4H #1 ml 08/02/20 predniSONE 60 mg PO DAILY #15 tab 08/02/20
[2020-08-02] MEDS ORDERED: ALBUTEROL SULFATE 2.5 MG/3 ML VIAL NEB ONE (14:51)
[2020-08-02] MEDS ORDERED: IPRATROPIUM/ALBUTEROL 3 ML VIAL NEB ONE ×2 (14:51→15:13)
[2020-08-02 15:46] VITALS: BP 134/82; TEMP 98.3; O2SAT 99
== END 2020-08-02 15:43 | disposition home or self-care (01) ==
LOC: ER 13:07
DX: J06.9 Acute upper respiratory infection, unspecified (principal); J44.1 Chronic obstructive pulmonary disease with (acute) exacerbation; F17.210 Nicotine dependence, cigarettes, uncomplicated; Z86.73 Personal history of transient ischemic attack (TIA), and cerebral infarction without residual deficits; Z79.899 Other long term (current) drug therapy; Z88.0 Allergy status to penicillin; Z20.828 Contact with and (suspected) exposure to other viral communicable diseases
CPT/HCPCS: 71045; 81025; 87502; 87635; 93005; 94640; 94760; J7611; J7620